=== PATIENT | female | born 1930 | race Caucasian/White ===

== ENCOUNTER → 2017-11-09 | Outpatient (CLI) | payer MEDICARE ==
--- NOTE | 2017-11-09 17:18 | US ---
EXAMINATION TYPE: US carotid duplex BILAT DATE OF EXAM: 11/09/2017 COMPARISON: NONE CLINICAL HISTORY: 87-year-old female R09.89 Circulatory symptoms/. Dizziness TECHNIQUE: Carotid duplex ultrasound examination. Indirect Doppler criteria was utilized. FINDINGS: EXAM MEASUREMENTS: RIGHT: Peak Systolic Velocity (PSV) cm/sec ----- Right CCA: 67.7 ----- Right ICA: 89.5 ----- Right ECA: 99.7 ICA/CCA ratio: 1.3 RIGHT: End Diastole cm/sec ----- Right CCA: 14.0 ----- Right ICA: 25.6 ----- Right ECA: 12.5 LEFT: Peak Systolic Velocity (PSV) cm/sec ----- Left CCA: 66.9 ----- Left ICA: 78.7 ----- Left ECA: 84.2 ICA/CCA ratio: 1.2 LEFT: End Diastole cm/sec ----- Left CCA: 12.7 ----- Left ICA: 18.2 ----- Left ECA: 7.3 VERTEBRALS (direction of flow): Right Vertebral: Antegrade Left Vertebral: Antegrade Rhythm: Normal Mild amount of plaque visualized bilaterally. No elevated velocities. No significant stenosis. IMPRESSION: No hemodynamically significant stenosis appreciated in either internal carotid artery. Criteria for Assigning % of Stenosis / Diameter reduction (Estimation based on the indirect measurements of the internal carotid artery velocities (ICA PSV). 1. Normal (no stenosis)=ICA PSV < 125 cm/s: ratio < 2.0: ICA EDV<40 cm/s. 2. Less than 50% stenosis=ICA PSV < 125 cm/s: ratio < 2.0: ICA EDV<40 cm/s. 3. 50 to 69% stenosis=ICA PSV of 125 to 230 cm/s: ration 2.0 ? 4.0: ICA EDV 40-100 cm/s. 4. Greater than 70% stenosis to near occlusion= ICA PSV > 230 cm/s: ratio > 4.0: ICA EDV > 100 cm/s. 5. Near occlusion= ICA PSV velocities may be low or undetectable: variable ratio and ICA EDV. 6. Total occlusion=unable to detect flow.
--- NOTE | 2017-11-09 20:51 | US ---
EXAMINATION TYPE: US kidneys/renal and bladder DATE OF EXAM: 11/09/2017 COMPARISON: NONE CLINICAL HISTORY: N28.9 Disorder of kidney. Abnormal labs. EXAM MEASUREMENTS: Right Kidney: 8.4 x 3.5 x 3.9 cm Left Kidney: 8.8 x 4.2 x 3.9 cm Right Kidney: No hydronephrosis. Measuring small. No cystic or solid mass visualized Left Kidney: No hydronephrosis. Measuring small. No cystic or solid mass visualized Bladder: wnl as visualized, not fully distended Bilateral Jets seen: Yes Increased cortical colon echogenicity is seen in both kidneys. Bladder is poorly distended and thus s uboptimally evaluated. Bilateral distal ureter jets are noted. IMPRESSION: No hydronephrosis evident bilaterally. Symmetric slightly small kidneys with increased cortical echog enicity, ultrasound findings consistent with product of chronic medical renal disease.
== END | disposition home or self-care (01) ==
LOC: RADUSWWP 15:29
PROVIDERS: ATTEND Family Medicine
DX: N27.1 Small kidney, bilateral (principal); R09.89 Other specified symptoms and signs involving the circulatory and respiratory systems
CPT/HCPCS: 76770; 93880

== ENCOUNTER → 2017-11-19 | Outpatient (CLI) | payer MEDICARE ==
--- NOTE | 2017-11-20 20:56 | MR ---
EXAMINATION TYPE: MR brain wo/w con DATE OF EXAM: 11/19/2017 COMPARISON: Prior MRI brain September 08, 2012. HISTORY: Dizziness and Giddiness per order. TECHNIQUE: Multiplanar, multisequence images of the brain and brainstem is performed without and with IV contras t, utilizing 7 mL intravenous Gadavist . FINDINGS: Diffusion weighted images demonstrate no evidence of a recent infarct or other diffusion ab normality. There is no worrisome extra-axial fluid collection. There is ventricular and sulcal promi nence consistent with mild diffuse age-related cerebral atrophy there are scattered foci of T2 hyperi ntensity seen throughout the superficial, deep, and periventricular white matter. Findings are most l ikely a basis of product of proximal vessel ischemic change in patient this age. Suspect over 50 scat tered lesions. Midline structures demonstrate normal morphology. The craniocervical junction appears within normal limits. Post contrast images demonstrate no abnormal enhancement. The dural venous sinuses appear pa tent. Mild mucosal thickening involving ethmoid sinuses is less prominent, left greater than right. R emainder paranasal sinuses are clear.. Patchy increased fluid signal left mastoid air cells remains p resent less prominent than prior. IMPRESSION: There is mild diffuse age-related cerebral atrophy and moderate to severe chronic small v essel ischemic change identified. Progression in the latter is noted from prior. No enhancing lesions are seen. Perhaps mild left-sided mastoiditis though this is less prominent from prior study, suspec t retained secretions. Correlate clinically. Mild chronic ethmoid sinus disease also improved from pr ior.
== END | disposition home or self-care (01) ==
LOC: RADMRIMAIN 11:09
PROVIDERS: ATTEND Physician Assistant
DX: G31.1 Senile degeneration of brain, not elsewhere classified (principal); I67.82 Cerebral ischemia
CPT/HCPCS: 70553; A9581

== ENCOUNTER 2018-11-21 08:42 | Emergency (ER) | payer MEDICARE ==
[2018-11-21 08:50] VITALS: TEMP 97.9
[2018-11-21 09:11] LABS: Appearance,Urine Clear (Clear); Bilirubin,Urine Negative (Negative); Blood,Urine Negative (Negative); Color,Urine Yellow; Glucose,Urine (UA) Negative (Negative); Ketones,Urine Negative (Negative); Leukocyte Esterase,Urine Negative (Negative); Nitrite,Urine Negative (Negative); PH, Urine 6.5 (5.0-8.0); Protein,Urine Negative (Negative); Specific Gravity,Urine 1.005 (1.001-1.035); Urobilinogen,Urine <2.0 mg/dL (<2.0)
--- NOTE | 2018-11-21 09:22 | ED ---
General Adult HPI - General Chief complaint: Abdominal Pain Stated complaint: Bowel pain Time Seen by Provider: 11/21/18 08:51 Source: patient Mode of arrival: wheelchair Limitations: no limitations - History of Present Illness Initial comments: Dictation was produced using [employer] dictation software. please excuse any grammatical, word or spelling errors. Chief Complaint: 88-year-old female presents with left lower quadrant pain. History of Present Illness: Patient is a 8-year-old female she has past medical history asthma and hypertension. Patient states she has had 3-4 days of left lower quadrant abdominal area. Patient states isn't different from anything she is ever experienced in the past. She normally has constipation however has had loose stools recently. Patient has a history of diverticulitis however she reports that they're typically periumbilical. It is she has left lower quadrant pain that she's never had in the past. Patient denies any nausea vomiting diarrhea. Denies any urinary symptoms. The ROS documented in this emergency department record has been reviewed and confirmed by me. Those systems with pertinent positive or negative responses have been documented in the HPI. All other systems are other negative and/or noncontributory. PHYSICAL EXAM: General Impression: Alert and oriented x3, not in acute distress HEENT: Normocephalic atraumatic, extra-ocular movements intact, pupils equal and reactive to light bilaterally, mucous membranes moist. Cardiovascular: Heart regular rate and rhythm, S1&S2 audible, no murmurs, rubs or gallops Chest: Lungs clear to auscultation bilaterally, no rhonchi, no wheeze, no rales Abdomen: Bowel sounds present, abdomen soft, non-tender, non-distended, no organomegaly Musculoskeletal: Pulses present and equal in all extremities, no peripheral edema Motor: no focal deficits noted Neurological: CN II-XII grossly intact, no focal motor or sensory deficits noted Skin: Intact with no visualized rashes Psych: Normal affect and mood ED course: 88-year-old female with left lower quadrant abdominal pain. Signs upon arrival are within acceptable limits. Patient is well-appearing. She does have significant left lower quadrant abdominal tenderness. CT imaging to be pursued at this time given that patient's pain is atypical. She does have diverticulitis but her symptoms does not remind her of it. She is otherwise well-appearing at this time.Laboratory evaluation obtained. No leukocytosis, metabolic panel is unremarkable. Urinalysis is negative. Computed tomography scan of the abdomen and pelvis was obtained showing moderate to severe diverticulitis without any significant complications. Patient is not significantly nauseated. Patient told that she has diverticulitis. She is agreeable to be discharged with oral medications. Patient states she has good follow-up with her primary care physician. Patient presents that she should return to the emergency department with constitutional symptoms, worsening pain and significantly worsening nausea and vomiting. Patient to be discharge she is provided a prescription for ciprofloxacin and Flagyl. She is also given by mouth analgesia and antiemetics. - Related Data Home Medications Medication Instructions Recorded Confirmed Aspirin [[place] Aspirin EC] 81 mg PO DAILY 11/21/18 11/21/18 Fluticasone/Salmeterol [Advair Hfa 2 puff INHALATION RT-BID 11/21/18 11/21/18 115-21 Mcg Inhaler] Metoprolol Tartrate [Lopressor] 25 mg PO BID 11/21/18 11/21/18 Multivit-Min/FA/Lycopen/Lutein 1 tab PO DAILY 11/21/18 11/21/18 [Centrum Silver Tablet] Zafirlukast [Accolate] 20 mg PO DAILY 11/21/18 11/21/18 amLODIPine [Norvasc] 2.5 mg PO DAILY 11/21/18 11/21/18 Previous Rx's Medication Instructions Recorded Ciprofloxacin [Cipro Susp] 500 mg PO Q12HR 14 Days #28 ml 11/21/18 HYDROcodone/APAP 5-325MG [Doon 1 tab PO Q6HR PRN 3 Days #12 tab 11/21/18 5-325] Ondansetron Odt [Zofran Odt] 4 mg PO Q8HR PRN #12 tab 11/21/18 metroNIDAZOLE [Flagyl] 500 mg PO TID 14 Days #42 tab 11/21/18 Allergies Allergy/AdvReac Type Severity Reaction Status Date / Time codeine AdvReac shortness Verified 11/21/18 09:21 of breath Review of Systems ROS Statement: Those systems with pertinent positive or pertinent negative responses have been documented in the HPI. ROS Other: All systems not noted in ROS Statement are negative. Past Medical History Past Medical History: Asthma, Hypertension Additional Past Medical History / Comment(s): constipation, migraines, diverticulosis, tinnitus, temporal arteritis - eye, basal cell skin cancer History of Any Multi-Drug Resistant Organisms: None Reported Past Surgical History: Appendectomy, Cholecystectomy, Hysterectomy, Tonsillectomy Additional Past Surgical History / Comment(s): cataracts Past Psychological History: No Psychological Hx Reported Smoking Status: Never smoker Past Alcohol Use History: None Reported Past Drug Use History: None Reported General Exam Limitations: no limitations Course Vital Signs 11/21/18 08:44 Temperature 97.9 F Pulse Rate 78 Respiratory 18 Rate Blood Pressure 168/84 O2 Sat by Pulse 98 Oximetry Medical Decision Making - Lab Data Result diagrams: 11/21/18 09:31 11/21/18 09:31 Lab Results 11/21/18 11/21/18 11/21/18 Range/Units 09:04 09:31 09:31 WBC 7.1 (3.8-10.6) k/uL RBC 4.55 (3.80-5.40) m/uL Hgb 13.8 (11.4-16.0) gm/dL Hct 41.6 (34.0-46.0) % MCV 91.4 (80.0-100.0) fL MCH 30.4 (25.0-35.0) pg MCHC 33.3 (31.0-37.0) g/dL RDW 12.3 (11.5-15.5) % Plt Count 291 (150-450) k/uL Neutrophils % 43 % Lymphocytes % 28 % Monocytes % 7 % Eosinophils % 19 % Basophils % 1 % Neutrophils # 3.0 (1.3-7.7) k/uL Lymphocytes # 2.0 (1.0-4.8) k/uL Monocytes # 0.5 (0-1.0) k/uL Eosinophils # 1.3 H (0-0.7) k/uL Basophils # 0.1 (0-0.2) k/uL Sodium 140 (137-145) mmol/L Potassium 4.3 (3.5-5.1) mmol/L Chloride 102 (98-107) mmol/L Carbon Dioxide 28 (22-30) mmol/L Anion Gap 10 mmol/L BUN 12 (7-17) mg/dL Creatinine 1.06 H (0.52-1.04) mg/dL Est GFR (CKD-EPI)AfAm 55 (>60 ml/min/1.73 sqM) Est GFR (CKD-EPI)NonAf 47 (>60 ml/min/1.73 sqM) Glucose 102 H (74-99) mg/dL Calcium 10.7 H (8.4-10.2) mg/dL Total Bilirubin 0.5 (0.2-1.3) mg/dL AST 44 H (14-36) U/L ALT 37 (9-52) U/L Alkaline Phosphatase 120 (38-126) U/L Total Protein 8.1 (6.3-8.2) g/dL Albumin 4.5 (3.5-5.0) g/dL Lipase 235 (23-300) U/L Urine Color Yellow Urine Appearance Clear (Clear) Urine pH 6.5 (5.0-8.0) Ur Specific [place] 1.005 (1.001-1.035) Urine Protein Negative (Negative) Urine Glucose (UA) Negative (Negative) Urine Ketones Negative (Negative) Urine Blood Negative (Negative) Urine Nitrite Negative (Negative) Urine Bilirubin Negative (Negative) Urine Urobilinogen <2.0 (<2.0) mg/dL Ur Leukocyte Esterase Negative (Negative) Disposition Clinical Impression: Diverticulitis Disposition: HOME SELF-CARE Condition: Good Instructions (If sedation given, give patient instructions): Diverticulitis (ED) Prescriptions: Ciprofloxacin [Cipro Susp] 500 mg PO Q12HR 14 Days #28 ml metroNIDAZOLE [Flagyl] 500 mg PO TID 14 Days #42 tab HYDROcodone/APAP 5-325MG [Doon 5-325] 1 tab PO Q6HR PRN 3 Days #12 tab PRN Reason: Severe Pain Ondansetron Odt [Zofran Odt] 4 mg PO Q8HR PRN #12 tab PRN Reason: Nausea Is patient prescribed a controlled substance at d/c from ED?: Yes If prescribed controlled substance>3 days was MAPS reviewed?: Prescribed <3 Days Referrals: Negro Sahu DO [Primary Care Provider] - 1-2 days Time of Disposition: 10:40
[2018-11-21 09:42] LABS: Basophils # (A) 0.1 k/uL (0-0.2); Basophils % (A) 1 %; Eosinophils # (A) 1.3 k/uL (0-0.7); Eosinophils % (A) 19 %; HCT 41.6 % (34.0-46.0); HGB 13.8 gm/dL (11.4-16.0); Lymphocytes % (A) 28 %; MCH 30.4 pg (25.0-35.0); MCHC 33.3 g/dL (31.0-37.0); MCV 91.4 fL (80.0-100.0); Mean Platelet Volume 6.5; Monocytes # (A) 0.5 k/uL (0-1.0); Monocytes % (A) 7 %; Neutrophils % (A) 43 %; Platelet Count 291 k/uL (150-450); RBC 4.55 m/uL (3.80-5.40); RDW 12.3 % (11.5-15.5); WBC 7.1 k/uL (3.8-10.6)
[2018-11-21 09:52] LABS: Albumin 4.5 g/dL (3.5-5.0); Calcium 10.7 mg/dL (8.4-10.2); Potassium 4.3 mmol/L (3.5-5.1); Total Bilirubin 0.5 mg/dL (0.2-1.3); Total Protein 8.1 g/dL (6.3-8.2)
--- NOTE | 2018-11-21 10:25 | CT ---
EXAMINATION TYPE: CT abdomen pelvis wo con DATE OF EXAM: 11/21/2018 HISTORY: LLQ pain, nausea, constipation CT DLP: 288.9 mGycm. Automated Exposure Control for Dose Reduction was Utilized. TECHNIQUE: CT scan of the abdomen and pelvis is performed without oral or IV contrast. COMPARISON: NONE FINDINGS: Within the limitations of a non-contrast study, the following observations are made. LUNG BASES: Bibasilar linear scarring and/or atelectasis is present. LIVER/GB: No significant abnormality is appreciated. PANCREAS: No significant abnormality is seen. SPLEEN: No significant abnormality is seen. ADRENALS: No significant abnormality is seen. KIDNEYS: No renal calculi evident bilaterally. Fullness of right renal pelvis without calyceal dilata tion suggests extrarenal pelvis. No obstructing calculi clearly seen. BOWEL: Evaluation bowel slightly suboptimal secondary to lack of enteric contrast. Some scattered col onic diverticula. Is prominent diverticulosis of the sigmoid colon. Moderate ill-defined fluid and fa t stranding in the pelvis centered left of midline coronal image 56 and axial image 102 consistent wi th acute diverticulitis. No well-formed fluid collection or abscess is identified. Suggestion of extr aluminal air noted though difficult to differentiate from the marked diverticulosis. GENITAL ORGANS: Uterus surgically absent or markedly atrophic. LYMPH NODES: No greater than 1cm abdominal or pelvic lymph nodes are appreciated. OSSEOUS STRUCTURES: No significant abnormality is seen. OTHER: No significant additional abnormality is seen. IMPRESSION: CT findings consistent with a moderate to severe acute diverticulitis centered in the pel vis involving the sigmoid colon. Cannot exclude contained perforation. No well-formed drainable fluid collection or abscess noted.
[2018-11-21 11:00] VITALS: BP 136/81; PULSE 76; RESP 16
== END 2018-11-21 10:57 | disposition home or self-care (01) ==
LOC: EC 08:42
DX: K57.32 Diverticulitis of large intestine without perforation or abscess without bleeding (principal); J45.909 Unspecified asthma, uncomplicated; I10 Essential (primary) hypertension; Z88.5 Allergy status to narcotic agent; Z79.51 Long term (current) use of inhaled steroids; Z79.82 Long term (current) use of aspirin; Z79.899 Other long term (current) drug therapy; Z87.19 Personal history of other diseases of the digestive system; Z85.828 Personal history of other malignant neoplasm of skin; Z90.49 Acquired absence of other specified parts of digestive tract
CPT/HCPCS: 36415; 74176; 80053; 81003; 83690; 85025; 87086; 99284

== ENCOUNTER 2018-12-02 12:29 | Emergency (ER) | payer MEDICARE ==
[2018-12-02 13:01] VITALS: RESP 18
[2018-12-02] MEDS ORDERED: SODIUM CHLORIDE 0.9% 1,000 ML IV STA (13:05)
--- NOTE | 2018-12-02 13:08 | ED ---
General Adult HPI - General Chief complaint: Abdominal Pain Stated complaint: Abd Pain Time Seen by Provider: 12/02/18 12:53 Source: patient, family, RN notes reviewed Mode of arrival: ambulatory Limitations: no limitations - History of Present Illness Initial comments: Patient is a pleasant 88-year-old female presenting to the emergency department with abdominal discomfort. Onset of symptoms was a couple of weeks ago. Symptoms have remained steady since that time. Patient was in the emergency department around 10 days ago and diagnosed with diverticulitis. Despite medication patient is not improved. Patient does have diarrhea and some nausea. No vomiting. No fevers. Patient also complains of some discomfort left wrist where her IV was. - Related Data Home Medications Medication Instructions Recorded Confirmed Zafirlukast [Accolate] 20 mg PO BID 11/21/18 12/02/18 Beclomethasone Dip 80 Mcg/Puff 1 puff INHALATION RT-DAILY 12/02/18 12/02/18 [Qvar 80 mcg] Ciprofloxacin HCl [Cipro] 500 mg PO Q12HR 12/02/18 12/02/18 Previous Rx's Medication Instructions Recorded metroNIDAZOLE [Flagyl] 500 mg PO TID 14 Days #42 tab 11/21/18 Allergies Allergy/AdvReac Type Severity Reaction Status Date / Time codeine AdvReac shortness Verified 12/02/18 13:06 of breath Review of Systems ROS Statement: Those systems with pertinent positive or pertinent negative responses have been documented in the HPI. ROS Other: All systems not noted in ROS Statement are negative. Constitutional: Denies: fever Eyes: Denies: eye pain ENT: Denies: ear pain Respiratory: Denies: cough, dyspnea Cardiovascular: Denies: chest pain Endocrine: Denies: fatigue Gastrointestinal: Reports: abdominal pain, nausea, diarrhea. Denies: vomiting Genitourinary: Denies: dysuria Musculoskeletal: Denies: back pain Skin: Denies: lesions Neurological: Denies: weakness Past Medical History Past Medical History: Asthma, Hypertension Additional Past Medical History / Comment(s): constipation, migraines, diverticulosis, tinnitus, temporal arteritis - eye, basal cell skin cancer History of Any Multi-Drug Resistant Organisms: None Reported Past Surgical History: Appendectomy, Cholecystectomy, Hysterectomy, Tonsillectomy Additional Past Surgical History / Comment(s): cataracts Past Psychological History: No Psychological Hx Reported Smoking Status: Never smoker Past Alcohol Use History: None Reported Past Drug Use History: None Reported General Exam Limitations: no limitations General appearance: alert, in no apparent distress Head exam: Present: atraumatic Eye exam: Present: normal appearance, PERRL ENT exam: Present: normal oropharynx Neck exam: Present: normal inspection Respiratory exam: Present: normal lung sounds bilaterally Cardiovascular Exam: Present: regular rate, normal rhythm GI/Abdominal exam: Present: soft, tenderness (Patient does have moderate tenderness to the lower abdomen), normal bowel sounds. Absent: distended, guarding, rebound, rigid, pulsatile mass Extremities exam: Present: other (Left wrist with ecchymosis. Also area of mild swelling approximately 1.5 cm diameter with tenderness. This is superficial.) Neurological exam: Present: alert Psychiatric exam: Present: normal affect, normal mood Skin exam: Present: other (Ecchymosis left dorsal wrist) Course Vital Signs 12/02/18 12/02/18 12:47 15:54 Temperature 97.8 F 97.4 F L Pulse Rate 80 74 Respiratory 18 18 Rate Blood Pressure 144/74 133/72 O2 Sat by Pulse 98 Oximetry Medical Decision Making - Medical Decision Making Patient reevaluated and resting comfortably in bed. Patient and family offered admission for IV therapy however patient refuses and does feel comfortable with going home. She does agree to follow-up with her doctor beginning of the week. - Lab Data Result diagrams: 12/02/18 13:05 12/02/18 13:05 Lab Results 12/02/18 12/02/18 12/02/18 Range/Units 13:05 13:05 13:05 WBC 8.3 (3.8-10.6) k/uL RBC 4.35 (3.80-5.40) m/uL Hgb 13.3 (11.4-16.0) gm/dL Hct 40.0 (34.0-46.0) % MCV 91.9 (80.0-100.0) fL MCH 30.6 (25.0-35.0) pg MCHC 33.3 (31.0-37.0) g/dL RDW 13.6 (11.5-15.5) % Plt Count 261 (150-450) k/uL Neutrophils % 60 % Lymphocytes % 21 % Monocytes % 6 % Eosinophils % 10 % Basophils % 1 % Neutrophils # 5.0 (1.3-7.7) k/uL Lymphocytes # 1.7 (1.0-4.8) k/uL Monocytes # 0.5 (0-1.0) k/uL Eosinophils # 0.8 H (0-0.7) k/uL Basophils # 0.1 (0-0.2) k/uL PT 10.0 (9.0-12.0) sec INR 0.9 (<1.2) APTT 20.6 L (22.0-30.0) sec Sodium 140 (137-145) mmol/L Potassium 3.8 (3.5-5.1) mmol/L Chloride 105 (98-107) mmol/L Carbon Dioxide 25 (22-30) mmol/L Anion Gap 10 mmol/L BUN 9 (7-17) mg/dL Creatinine 1.00 (0.52-1.04) mg/dL Est GFR (CKD-EPI)AfAm 59 (>60 ml/min/1.73 sqM) Est GFR (CKD-EPI)NonAf 51 (>60 ml/min/1.73 sqM) Glucose 110 H (74-99) mg/dL Calcium 9.9 (8.4-10.2) mg/dL Total Bilirubin 0.4 (0.2-1.3) mg/dL AST 35 (14-36) U/L ALT 23 (9-52) U/L Alkaline Phosphatase 82 (38-126) U/L Total Protein 7.0 (6.3-8.2) g/dL Albumin 4.0 (3.5-5.0) g/dL Amylase 134 H (30-110) U/L Lipase 282 (23-300) U/L Urine Color Urine Appearance (Clear) Urine pH (5.0-8.0) Ur Specific [place] (1.001-1.035) Urine Protein (Negative) Urine Glucose (UA) (Negative) Urine Ketones (Negative) Urine Blood (Negative) Urine Nitrite (Negative) Urine Bilirubin (Negative) Urine Urobilinogen (<2.0) mg/dL Ur Leukocyte Esterase (Negative) Urine RBC (0-5) /hpf Urine WBC (0-5) /hpf Ur Squamous Epith Cells (0-4) /hpf 12/02/18 Range/Units 14:00 WBC (3.8-10.6) k/uL RBC (3.80-5.40) m/uL Hgb (11.4-16.0) gm/dL Hct (34.0-46.0) % MCV (80.0-100.0) fL MCH (25.0-35.0) pg MCHC (31.0-37.0) g/dL RDW (11.5-15.5) % Plt Count (150-450) k/uL Neutrophils % % Lymphocytes % % Monocytes % % Eosinophils % % Basophils % % Neutrophils # (1.3-7.7) k/uL Lymphocytes # (1.0-4.8) k/uL Monocytes # (0-1.0) k/uL Eosinophils # (0-0.7) k/uL Basophils # (0-0.2) k/uL PT (9.0-12.0) sec INR (<1.2) APTT (22.0-30.0) sec Sodium (137-145) mmol/L Potassium (3.5-5.1) mmol/L Chloride (98-107) mmol/L Carbon Dioxide (22-30) mmol/L Anion Gap mmol/L BUN (7-17) mg/dL Creatinine (0.52-1.04) mg/dL Est GFR (CKD-EPI)AfAm (>60 ml/min/1.73 sqM) Est GFR (CKD-EPI)NonAf (>60 ml/min/1.73 sqM) Glucose (74-99) mg/dL Calcium (8.4-10.2) mg/dL Total Bilirubin (0.2-1.3) mg/dL AST (14-36) U/L ALT (9-52) U/L Alkaline Phosphatase (38-126) U/L Total Protein (6.3-8.2) g/dL Albumin (3.5-5.0) g/dL Amylase (30-110) U/L Lipase (23-300) U/L Urine Color Light Yellow Urine Appearance Clear (Clear) Urine pH 6.5 (5.0-8.0) Ur Specific [place] 1.008 (1.001-1.035) Urine Protein Negative (Negative) Urine Glucose (UA) Negative (Negative) Urine Ketones Negative (Negative) Urine Blood Negative (Negative) Urine Nitrite Negative (Negative) Urine Bilirubin Negative (Negative) Urine Urobilinogen <2.0 (<2.0) mg/dL Ur Leukocyte Esterase Small H (Negative) Urine RBC 1 (0-5) /hpf Urine WBC 6 H (0-5) /hpf Ur Squamous Epith Cells 1 (0-4) /hpf - Radiology Data Radiology results: report reviewed (Computed tomography scan of the abdomen and pelvis reported as decrease inflammation however not resolved. No complicating perforation or abscess.) Disposition Clinical Impression: Diverticulitis Disposition: HOME SELF-CARE Condition: Stable Instructions (If sedation given, give patient instructions): Diverticulitis (ED) Additional Instructions: Please follow-up with your primary care physician in the beginning of the week. High-fiber diet. Return for fevers, increased pain, worsening symptoms or other concerns. Is patient prescribed a controlled substance at d/c from ED?: No Referrals: Negro Sahu DO [Primary Care Provider] - 1-2 days Time of Disposition: 16:09
[2018-12-02 13:32] LABS: Basophils # (A) 0.1 k/uL (0-0.2); Basophils % (A) 1 %; Eosinophils # (A) 0.8 k/uL (0-0.7); Eosinophils % (A) 10 %; HGB 13.3 gm/dL (11.4-16.0); Lymphocytes # (A) 1.7 k/uL (1.0-4.8); Lymphocytes % (A) 21 %; MCH 30.6 pg (25.0-35.0); MCHC 33.3 g/dL (31.0-37.0); MCV 91.9 fL (80.0-100.0); Mean Platelet Volume 7.3; Monocytes # (A) 0.5 k/uL (0-1.0); Monocytes % (A) 6 %; Neutrophils % (A) 60 %; Platelet Count 261 k/uL (150-450); RBC 4.35 m/uL (3.80-5.40); RDW 13.6 % (11.5-15.5); WBC 8.3 k/uL (3.8-10.6)
[2018-12-02 13:34] LABS: Calcium 9.9 mg/dL (8.4-10.2); Potassium 3.8 mmol/L (3.5-5.1); Total Bilirubin 0.4 mg/dL (0.2-1.3)
[2018-12-02 13:56] LABS: INR 0.9 (<1.2)
[2018-12-02 14:08] LABS: Partial Thromboplastin Time 20.6 sec (22.0-30.0)
[2018-12-02 14:43] LABS: Appearance,Urine Clear (Clear); Bilirubin,Urine Negative (Negative); Blood,Urine Negative (Negative); Color,Urine Light Yellow; Glucose,Urine (UA) Negative (Negative); Ketones,Urine Negative (Negative); Leukocyte Esterase,Urine Small (Negative); Nitrite,Urine Negative (Negative); PH, Urine 6.5 (5.0-8.0); Protein,Urine Negative (Negative); RBC,Urine 1 /hpf (0-5); Specific Gravity,Urine 1.008 (1.001-1.035); Squamous Epithelial Cell,Urine 1 /hpf (0-4); Urobilinogen,Urine <2.0 mg/dL (<2.0); WBC,Urine 6 /hpf (0-5)
[2018-12-02 15:55] VITALS: BP 133/72; PULSE 74; TEMP 97.4
[2018-12-02] MEDS ORDERED: traMADol 50 MG STARTER PACK 3 TAB BTL PO STA (16:09)
--- NOTE | 2018-12-02 21:51 | CT ---
EXAMINATION TYPE: CT abdomen pelvis w con DATE OF EXAM: 12/02/2018 COMPARISON: HISTORY: Pelvic pain and diarrhea. CT DLP: 497.2 mGycm Automated exposure control for dose reduction was used. TECHNIQUE: Helical acquisition of images was performed from the lung bases through the pelvis. CONTRAST: Performed without Oral Contrast and with IV Contrast, patient injected with 100 mL of Isovue 300. FINDINGS: Bibasilar subsegmental atelectasis, the lung bases otherwise clear. Liver is without focal lesion. Mild intrahepatic biliary ductal dilatation; extrahepatic biliary duct within normal limits given age. The spleen, pancreas, and adrenal glands are within normal limits. Subcentimeter hypodense bilateral renal lesions statistically represent cysts. No obstruction. No adalberto ling defect in delayed imaging. Distended urinary bladder. Surgically absent uterus. Sigmoid colonic redundancy. Multiple colonic diverticuli with decrease in amount of pericolonic infla mmation from comparative CT performed 11 days ago. No free air or focal fluid collection. No suspicious adenopathy. Aortoiliac calcifications without aneurysm. No osseous destructive lesion. Sclerotic right iliac bone lesion compatible with benign bone island. Grade 1 anterolisthesis of L3 over L4 likely degenerative in etiology. IMPRESSION: DECREASED AMOUNT OF INFLAMMATION IN THE AREA PREVIOUSLY DESCRIBED SIGMOID COLONIC DIVERTICULITIS. NO EVIDENCE PERFORATION, ABSCESS, OR BOWEL OBSTRUCTION.
== END 2018-12-02 16:13 | disposition home or self-care (01) ==
LOC: EC 12:29
DX: K57.92 Diverticulitis of intestine, part unspecified, without perforation or abscess without bleeding (principal); R58 Hemorrhage, not elsewhere classified; M79.89 Other specified soft tissue disorders; J45.909 Unspecified asthma, uncomplicated; Z88.5 Allergy status to narcotic agent; Z79.51 Long term (current) use of inhaled steroids; Z79.899 Other long term (current) drug therapy; Z85.828 Personal history of other malignant neoplasm of skin; Z90.49 Acquired absence of other specified parts of digestive tract; Z53.20 Procedure and treatment not carried out because of patient's decision for unspecified reasons
CPT/HCPCS: 36415; 80053; 82150; 83690; 85025; 85610; 85730; 81001; 74177; 99284; 96360; Q9967

== ENCOUNTER → 2019-11-23 | Outpatient (CLI) | payer MEDICARE ==
--- NOTE | 2019-11-23 10:27 | CT ---
EXAMINATION TYPE: CT brain wo con DATE OF EXAM: 11/23/2019 COMPARISON: None HISTORY: Headaches CT DLP: 892.[address] of the brain was performed. The ventricles, basal cisterns and sulci overlying the cerebral convexities demonstrate mild enlargem ent. There is no evidence for intracranial hemorrhage or sulcal effacement. There is decreased attenuation about the periventricular white matter and deep white matter of both c erebral hemispheres, compatible with chronic small vessel ischemia. Differential diagnosis does inclu de demyelination. No mass effects are seen.No midline shift. Osseous calvarium is intact. If symptoms persist consider MRI. IMPRESSION: 1. Age related atrophic and chronic small vessel ischemic change without acute intracranial process s een at this time.
== END | disposition home or self-care (01) ==
LOC: RADCTMAIN 10:02
PROVIDERS: ATTEND Family Medicine
DX: G31.1 Senile degeneration of brain, not elsewhere classified (principal); I67.82 Cerebral ischemia
CPT/HCPCS: 70450